=== PATIENT | female | born 1980 | race Caucasian/White ===

== ENCOUNTER 2019-01-12 03:25 | Emergency (ER) | payer SELFPAY ==
[2019-01-12] MEDS ORDERED: MAG HYDROX/AL HYDROX/SIMETH 30 ML UNIT-DOSE CUP PO ONE (03:47)
[2019-01-12] MEDS ORDERED: SODIUM CHLORIDE 1,000 ML IV STA (03:47)
[2019-01-12] MEDS ORDERED: FAMOTIDINE 20 MG/50 ML IVPB 20 MG/50 ML MG IVPB ONE (03:47)
[2019-01-12] MEDS ORDERED: ACETAMINOPHEN 1000 MG/100 ML VIAL (NON FORMULARY) IVPB ONE (03:47)
--- NOTE | 2019-01-12 03:55 | PDOC ---
History of Present Illness - General Stated Complaint: ABD PAIN Time Seen by Provider: 01/12/19 03:46 History Source: Patient Exam Limitations: No Limitations - History of Present Illness Initial Comments: Pt is a 38 yo F, with PMH of nephrolithiasis, who is presenting with complaints of diffuse upper abdominal pain that awoke her from sleep about 1.5 hours ago. Pt describes the pain as sharp, does not radiate, and has been constant since she awoke. Pt ate BBQ chicken just before she went to sleep. Pt recently arrived from the [facility], and has not been able to establish PCP yet. Pt denies any fevers/chills, headache, vision changes, syncope, chest pain , palpitations, SOB, nausea/vomiting, urinary symptoms, diarrhea/constipation, or leg swelling. Allergies: NKDA PCP: None Social: Pt denies any cigarette, alcohol, or drug use. Pt arrived from [facility] 1 month ago. Surgical: abdominoplasty (2017), x1. Family: no relevant history. 01/12/19 04:10 Past History - Travel Traveled outside of the country in the last 30 days: No Close contact w/someone who was outside of country & ill: No - Past Medical History Allergies/Adverse Reactions: Allergies Allergy/AdvReac Type Severity Reaction Status Date / Time No Known Allergies Allergy Verified 01/12/19 04:13 Home Medications: Ambulatory Orders Miconazole Nitrate [Miconazole 7] 45 gm VG DAILY 01/12/19 Review of Systems - Review of Systems Able to Perform ROS?: Yes Is the patient limited Gabonese proficient: No Constitutional: Yes: Weight Stable. No: Chills, Diaphoresis, Fever, Loss of Appetite, Malaise, Night Sweats HEENTM: No: Blurred Vision, Double Vision, Nose Congestion, Throat Pain, Throat Swelling, Difficulty Swallowing Respiratory: No: Cough, Orthopnea, Shortness of Breath Cardiac (ROS): No: Chest Pain, Edema, Irregular Heart Rate, Lightheadedness, Palpitations, Syncope, Chest Tightness ABD/GI: Yes: See HPI, Indigestion, Abdominal cramping. No: Abdominal Distended , Constipated, Diarrhea, Nausea, Poor Appetite, Poor Fluid Intake, Vomiting : No: Burning, Dysuria, Frequency, Pain, Urgency Musculoskeletal: No: Back Pain, Joint Pain, Muscle Pain, Muscle Weakness Integumentary: No: Rash Neurological: No: Headache, Numbness, Weakness, Dizziness Psychiatric: No: Sleep Pattern Change, Change in Appetite Endocrine: No: Increased Urine, Change in Weight Hematologic/Lymphatic: No: Anemia, Blood Clots, Easy Bleeding, Easy Bruising All Other Systems: Reviewed and Negative *Physical Exam - Physical Exam Comments: Vitals stable, pt afebrile. Pt appears very uncomfortable, tearful on the bed, overweight body habitus. Pt alert and oriented x3. endocrinology teacher generally intact, muscular strength and sensation intact. No midline spinal tenderness, step-offs, or crepitus. Head normocephalic, atraumatic. Eyes PERRLA, EOMI. Oropharynx without erythema or exudates, no LAD b/l. No nasal congestion, hearing intact. Clear heart sounds, S1/S2, no JVD, b/l pedal edema, or heart murmur. Clear lung sounds, no respiratory distress, wheezes, crackles, or accessory muscle use. LUQ and epigastric TTP, no rebound, no guarding. Abdomen soft, non-distended, and with normoactive bowel sounds. Skin without jaundice or rash. 01/12/19 03:59 ED Treatment Course - LABORATORY CBC & Chemistry Diagram: 01/12/19 04:00 01/12/19 04:00 - RADIOLOGY Radiology Studies Ordered: Category Date Time Status ABDOMEN US -LIMITED [US] Stat Ultrasound 01/12/19 03:47 Ordered Medical Decision Making - Medical Decision Making Pt was seen at bedside, also will be seen by attending Dr. Hand. Pt presenting with complaints of diffuse upper abdominal pain that awoke her from sleep about 1.5 hours ago. Pt describes the pain as sharp, does not radiate, and has been constant since she awoke. Pt ate BBQ chicken just before she went to sleep. Pt recently arrived from the [place], and has not been able to establish PCP yet. Pt denies any fevers/chills, headache, vision changes, syncope, chest pain, palpitations, SOB, nausea/vomiting, urinary symptoms, diarrhea/constipation, or leg swelling. Considering acute gastritis/ulcer vs cholecysitis/choledocholithiasis vs ACS vs pancreatitis. Ordered work-up including CBC, CMP, lipase, serum , UA, coags. Will perform bedside and official US to look for stones. Provided 1 L IV NS, 1 g IV ofirmev, 30 mg PO maalox, and 20 mg IV pepcid for improvement of indigestion/discomfort. Will continue to reassess pt and monitor for symptomatic improvement. 01/12/19 04:00 ECG: NSR, intervals WNL (HR 85, NJ 132, QRS 70, QTc 433). No TWIs or significant ST segment changes. No prior ECG for comparison. Bedside US showed distended GB with TTP over RUQ, no GB sludge or stones noted. Prominent b/l kidneys with no apparent hydro or cysts. CBC WNL CMP: AST 65, ALT 62 Trop <.02 test negative UA showed mild LE, appears contaminated. Pt has no urinary symptoms, urine culture sent. Pending official US at 7:00am. Pt states pain improved after interventions, resting comfortably. 01/12/19 05:00 Pt resting comfortably. Pending US. Pt signed out to day team. 01/12/19 06:45 *DC/Admit/Observation/Transfer Diagnosis at time of Disposition: RUQ abdominal pain - Discharge Dispostion Condition at time of disposition: Stable - Referrals Referrals: [facility] at [place] [Provider Group] - Patient Instructions - Post Discharge Activity
[2019-01-12 04:13] LABS: BASO % 0.3 % (0-2.0); EOS % 5.2 % (0-4.5); HEMATOCRIT 40.9 % (32.4-45.2); HEMOGLOBIN 13.5 GM/dL (10.7-15.3); LYMPH % 42.4 % (8-40); MCH 27.8 pg (25.7-33.7); MCHC 32.9 g/dl (32.0-36.0); MEAN CELL VOLUME 84.5 fl (80-96); MEAN PLT VOLUME 7.7 fl (7.5-11.1); MONO % 12.6 % (3.8-10.2); NEUT % 39.5 % (42.8-82.8); PLATELET COUNT 372 K/MM3 (134-434); RBC 4.84 M/mm3 (3.60-5.2); RDW 15.9 % (11.6-15.6); WHITE BLOOD COUNT 5.9 K/mm3 (4.0-10.0)
[2019-01-12 04:20] VITALS: BP 110/77; PULSE 87; TEMP 97.7
[2019-01-12 04:25] LABS: INR 1.11 (0.83-1.09); PROTHROMBIN TIME (PATIENT) 13.1 SEC (9.7-13.0)
[2019-01-12 04:37] LABS: ALBUMIN 3.9 g/dl (3.4-5.0); ALK PHOS 139 U/L (45-117); ANION GAP 7 MMOL/L (8-16); BLOOD UREA NITROGEN 15.1 mg/dL (7-18); CALCIUM 8.7 mg/dL (8.5-10.1); CHLORIDE 106 mmol/L (98-107); CO2 28 mmol/L (21-32); CREATININE 0.8 mg/dL (0.55-1.3); GLUCOSE,RANDOM 92 mg/dL (74-106); LIPASE 160 U/L (73-393); POTASSIUM 3.6 mmol/L (3.5-5.1); SGOT/AST 65 U/L (15-37); SGPT/ALT 62 U/L (13-61); SODIUM 140 mmol/L (136-145); TOT PROT 8.1 g/dl (6.4-8.2)
[2019-01-12 04:55] LABS: EPI CELLS 10.8 /HPF (0-5/HPF); HYALINE CASTS 3 /lpf (0-8); PH,URINE 7.5 (5.0-8.0); URINE APPEARANCE CLOUDY; URINE BACTERIA 65.5 /hpf (NEGATIVE); URINE BILIRUBIN NEGATIVE (NEGATIVE); URINE COLOR YELLOW; URINE GLUCOSE (UA) NEGATIVE (NEGATIVE); URINE KETONE NEGATIVE (NEGATIVE); URINE LEUK ESTERASE 1+ (NEGATIVE); URINE NITRITE NEGATIVE (NEGATIVE); URINE PROTEIN NEGATIVE (NEGATIVE); URINE RBC 2 /hpf (0-4); URINE UROBILINOGEN 0.2 mg/dL (0.2-1.0); URINE WBC 12 /hpf (0-5)
--- NOTE | 2019-01-12 05:35 | PDOC ---
Attending Attestation - Resident Resident Name: Michelle Frank - ED Attending Attestation I have performed the following: I have examined & evaluated the patient, The case was reviewed & discussed with the resident, I agree w/resident's findings & plan, Exceptions are as noted - HPI HPI: 01/12/19 05:33 38 F with no PMH presents to ED with upper abdominal pain. Pt states that she ate chicken prior to going to bed and woke up at around 3 am with sharp abdominal pain. Denies N/V. Denies lower abdominal pain or flank pain. Denies CP /SOB. Denies vaginal discharge/bleeding. Denies dysuria. Denies F/C. - Physicial Exam PE: 01/12/19 05:34 GENERAL: Awake, alert, and fully oriented, in no acute distress. HEAD: No signs of trauma EYES: PERRLA, EOMI, sclera anicteric, conjunctiva clear ENT: Auricles normal inspection, hearing grossly normal, nares patent, oropharynx clear without exudates. Moist mucosa NECK: Nontender, no stepoffs, Normal ROM, supple, no lymphadenopathy, JVD, or masses LUNGS: Breath sounds equal, clear to auscultation bilaterally. No wheezes, and no crackles HEART: Regular rate and rhythm, normal S1 and S2, no murmurs, rubs or gallops ABDOMEN: + RUQ TTP, normoactive bowel sounds. No guarding, no rebound. No masses EXTREMITIES: Normal range of motion, no edema. No clubbing or cyanosis. No cords, erythema, or tenderness NEUROLOGICAL: Cranial nerves II through XII intact. 5/5 strength and sensation in all extremities, Normal speech, normal gait, normal cerebellar function SKIN: Warm, Dry, normal turgor, no rashes or lesions noted. - Medical Decision Making 01/12/19 05:34 38 F with RUQ tenderness. Bedside US reveals distended GB but no stones. Suspect likely gastritis vs PUD. - Labs, lipase, LFTs - GI cocktail - RUQ sono 01/12/19 06:41 Labs with very mild transaminitis, otherwise unremarkable Pt reassessed - pain improved but marbleizing machine tender in RUQ Pt signed out to oncoming team, pending US and re-evaluation
--- NOTE | 2019-01-12 07:12 | PDOC ---
*Physical Exam - Vital Signs Last Vital Signs Temp Pulse Resp BP Pulse Ox 97.7 F 87 18 110/77 100 01/12/19 04:10 01/12/19 04:10 01/12/19 04:10 01/12/19 04:10 01/12/19 04:10 ED Treatment Course - LABORATORY CBC & Chemistry Diagram: 01/12/19 04:00 01/12/19 04:00 - ADDITIONAL ORDERS Additional order review: Laboratory Results 01/12/19 01/12/19 01/12/19 04:35 04:00 04:00 PT with INR INR Sodium 140 Potassium 3.6 Chloride 106 Carbon Dioxide 28 Anion Gap 7 L BUN 15.1 Creatinine 0.8 Est GFR (CKD-EPI)AfAm 108.39 Est GFR (CKD-EPI)NonAf 93.52 Random Glucose 92 Calcium 8.7 Total Bilirubin 1.0 AST 65 H ALT 62 H Alkaline Phosphatase 139 H Creatine Kinase 118 Troponin I < 0.02 Total Protein 8.1 Albumin 3.9 Lipase 160 Serum , Qual Urine Color Yellow Urine Appearance Cloudy Urine pH 7.5 Ur Specific Hecker 1.018 Urine Protein Negative Urine Glucose (UA) Negative Urine Ketones Negative Urine Blood Negative Urine Nitrite Negative Urine Bilirubin Negative Urine Urobilinogen 0.2 Ur Leukocyte Esterase 1+ H Urine WBC (Auto) 12 Urine RBC (Auto) 2 Urine Casts (Auto) 3 U Epithel Cells (Auto) 10.8 U Sm Round Cell (Auto) None Urine Crystals (Auto) S phosphateamorphou Urine Bacteria (Auto) 65.5 Blood Type O POSITIVE Antibody Screen Negative 01/12/19 01/12/19 04:00 04:00 PT with INR 13.10 H INR 1.11 H Sodium Potassium Chloride Carbon Dioxide Anion Gap BUN Creatinine Est GFR (CKD-EPI)AfAm Est GFR (CKD-EPI)NonAf Random Glucose Calcium Total Bilirubin AST ALT Alkaline Phosphatase Creatine Kinase Troponin I Total Protein Albumin Lipase Serum , Qual Negative Urine Color Urine Appearance Urine pH Ur Specific Hecker Urine Protein Urine Glucose (UA) Urine Ketones Urine Blood Urine Nitrite Urine Bilirubin Urine Urobilinogen Ur Leukocyte Esterase Urine WBC (Auto) Urine RBC (Auto) Urine Casts (Auto) U Epithel Cells (Auto) U Sm Round Cell (Auto) Urine Crystals (Auto) Urine Bacteria (Auto) Blood Type Antibody Screen 01/12/19 04:00 RBC 4.84 MCV 84.5 MCHC 32.9 RDW 15.9 H MPV 7.7 Neutrophils % 39.5 L Lymphocytes % 42.4 H Monocytes % 12.6 H Eosinophils % 5.2 H Basophils % 0.3 - Medications Given in the ED: ED Medications Discontinued Medications Generic Name Dose Route Start Last Admin Trade Name Manjinder PRN Reason Stop Dose Admin Acetaminophen 1,000 mg 01/12/19 03:47 01/12/19 04:13 Ofirmev Injection - IVPB 01/12/19 03:48 1,000 mg ONCE ONE Administration Al Hydroxide/Mg Hydroxide 30 ml 01/12/19 03:47 01/12/19 04:12 Mylanta Oral Suspension - PO 01/12/19 03:48 30 ml ONCE ONE Administration Famotidine/Sodium Chloride 20 mg in 50 mls @ 100 mls/hr 01/12/19 03:47 04:21 Pepcid 20 Mg Premixed Ivpb - IVPB 01/12/19 04:16 100 mls/hr ONCE ONE Administration Sodium Chloride 1,000 mls @ 1,000 mls/hr 01/12/19 03:47 01/12/19 04:12 Normal Saline - IV 01/12/19 04:46 1,000 mls/hr ASDIR STA Administration Medical Decision Making - Medical Decision Making 38yo F with PMH of nephrolithiasis complaining of diffuse upper abdominal pain that woke her from sleep about 1.5 hours prior to arrival. Patient received GI cocktail Labs unremarkable, though with some mild transaminitis Pending US Possible SW consult 01/12/19 07:13 RUQ US: "The liver measures 16.8 cm in sagittal length with a slightly dense and coarse echotexture. Gallbladder is adequately distended without intraluminal stones or thickening of its wall. No intra or extrahepatic bile duct dilatation is seen. The right kidney measures 10.5 cm sagittal length and appears unremarkable. Visualized portion of the pancreas appears unremarkable Visualized portion of the proximal abdominal aorta and inferior vena cava appear unremarkable. Normal flow in the main portal vein. IMPRESSION: Fatty liver versus hepatocellular disease. Please correlate with liver enzymes. No gallstones are identified." Patient with improved abdominal exam Plan to have her follow-up with [facility] Patient discharged *DC/Admit/Observation/Transfer Diagnosis at time of Disposition: RUQ abdominal pain - Discharge Dispostion Disposition: HOME Condition at time of disposition: Stable - Referrals Referrals: [facility] at [place] [Provider Group] Migue Rosa MD [Staff Physician] - - Patient Instructions Printed Discharge Instructions: DI for Abdominal Pain-Adult Additional Instructions: You came into the ED for abdominal pain. Ultrasound imaging was normal. Labs showed some elevated liver enzymes which should be follow-up on. Followed-up with a primary care provider this week to discuss this ED visit and to further evaluate your symptoms. Your workup is not complete until you do so. You have been referred to the [facility] in case you do not have a primary care doctor. Call and make an appointment at the number provided. Keep diet light - nothing fatty, fried, or spicy. Immediate medical attention is required if you have: you develop worsening pain , high fevers, persistent nausea, vomiting, or any new or concerning symptoms. If you think you are having an emergency, call for emergency medical services or present to the emergency department right away. Entraste en el servicio de urgencias por dolor abdominal. La ecografa fue normal. Los laboratorios mostraron algunas enzimas hepticas elevadas que deberan ser seguidas. Duncan un seguimiento con un proveedor de atencin primaria esta semana para analizar esta visita al ED y para evaluar ms a fondo bob sntomas. Trammell preparacin no est completa hasta que lo duncan. Wong sido referido a la [facility] en debbie de que no tenga un mdico de atencin primaria. Llame y duncan juan pablo red en el nmero proporcionado. Mantenga la dieta ligera: nada graso, frito o picante. Se requiere atencin mdica inmediata si: tiene un dolor que empeora, fiebre joanne, nuseas persistentes, vmitos o cualquier sntoma nuevo o relacionado con ellos. Si xiang que tiene juan pablo emergencia, llame para solicitar servicios mdicos de emergencia o presente al departamento de emergencias de inmediato. Print Language: PERSIAN - Post Discharge Activity Forms/Work/School Notes: Back to Work
--- NOTE | 2019-01-12 11:10 | EKG ---
Test Reason : Blood Pressure : / mmHG Vent. Rate : 085 BPM Atrial Rate : 085 BPM P-R Int : 132 ms QRS Dur : 070 ms QT Int : 364 ms P-R-T Axes : 002 065 033 degrees QTc Int : 433 ms NORMAL SINUS RHYTHM NORMAL ECG NO PREVIOUS ECGS AVAILABLE Confirmed by KENYA MA MD ([id number]) on 01/12/2019 11:10:14 AM Referred By: Confirmed By:KENYA MA MD
== END 2019-01-12 11:25 | disposition home or self-care (01) ==
LOC: JER 03:25
PROC: 3E033GC Introduction of Other Therapeutic Substance into Peripheral Vein, Percutaneous Approach (ICD-10-PCS; principal; 2019-01-12)
PROC: 3E0337Z Introduction of Electrolytic and Water Balance Substance into Peripheral Vein, Percutaneous Approach (ICD-10-PCS; 2019-01-12)
PROC: 3E033NZ Introduction of Analgesics, Hypnotics, Sedatives into Peripheral Vein, Percutaneous Approach (ICD-10-PCS; 2019-01-12)
PROC: BF42ZZZ Ultrasonography of Gallbladder (ICD-10-PCS; 2019-01-12)
DX: R10.11 Right upper quadrant pain (principal); K76.0 Fatty (change of) liver, not elsewhere classified; R94.5 Abnormal results of liver function studies
CPT/HCPCS: 36415; 76705-TC; 80053; 81003; 82550; 83690; 84484; 84703; 85025; 85610; 86850; 86900; 86901; 87077; 87086; 93005; 93010; 96361; 96365; 96375; 99283-25; J0131; J7030

== ENCOUNTER 2019-05-25 08:39 | Emergency (ER) | payer OTHER ==
[2019-05-25 08:45] VITALS: BP 108/70; PULSE 86; TEMP 98.4; BMI 26.4
--- NOTE | 2019-05-25 09:30 | PDOC ---
History of Present Illness - General Chief Complaint: Abscess Boil Stated Complaint: ABSCESS BOIL Time Seen by Provider: 05/25/19 09:05 History Source: Patient Exam Limitations: Clinical Condition - History of Present Illness Initial Comments: 05/25/19 09:34 Patient with no significant past medical history presented with complaint of 1 month history of ingrown hair to left vulvar area which has turned into abscess. Patient reports shaving a month ago to travel outside the country and started having ingrown hair which she plucked it out but areas kept going and has been worsening in the past week. Denies fever, chills. Patient on menstrual period right now Timing/Duration: reports: week (1 week) Severity: Yes: mild Past History - Past Medical History Allergies/Adverse Reactions: Allergies Allergy/AdvReac Type Severity Reaction Status Date / Time No Known Allergies Allergy Verified 01/12/19 04:13 Home Medications: Ambulatory Orders Miconazole Nitrate [Miconazole 7] 45 gm VG DAILY 01/12/19 Mupirocin Ointment [Bactroban 2% Ointment -] 1 applic TP BID #1 tube 05/25/19 Sulfamethoxazole/Trimethoprim [Bactrim Ds -] 1 tab PO BID #14 tablet 05/25/19 COPD: No - Immunization History Immunization Up to Date: No - Psycho Social/Smoking Cessation Hx Smoking History: Never smoked Have you smoked in the past 12 months: No Information on smoking cessation initiated: No Hx Alcohol Use: No Drug/Substance Use Hx: No Review of Systems - Review of Systems Able to Perform ROS?: Yes Is the patient limited Lao proficient: No Constitutional: No: Chills, Fever, Malaise, Weakness HEENTM: No: Symptoms Reported Respiratory: No: Symptoms reported Cardiac (ROS): No: Symptoms Reported ABD/GI: No: Symptoms Reported, Nausea, Vomiting : Yes: Symptoms Reported, See HPI, Other (left vulva abscess). No: Discharge , Frequency, Hematuria, Urgency Musculoskeletal: Yes: Symptoms Reported, See HPI, Muscle Pain (left vulva area) Integumentary: Yes: Symptoms Reported, See HPI, Lumps (left vulva abscess) Neurological: No: Symptoms reported All Other Systems: Reviewed and Negative *Physical Exam - Vital Signs Last Vital Signs Temp Pulse Resp BP Pulse Ox 98.4 F 86 18 108/70 98 05/25/19 08:43 05/25/19 08:43 05/25/19 08:43 05/25/19 08:43 05/25/19 08:43 - Physical Exam General Appearance: Yes: Nourished, Appropriately Dressed, Mild Distress HEENT: positive: Normal ENT Inspection Respiratory/Chest: negative: Respiratory Distress, Accessory Muscle Use Gastrointestinal/Abdominal: negative: Tender Musculoskeletal: positive: Normal Inspection Extremity: positive: Normal Inspection Integumentary: positive: Normal Color, Swelling (2cm localized abscess to left labial majora. no open wounds. no drainage from site. mild surrounding skin erythema) Neurologic: positive: Fully Oriented, Alert, Normal Mood/Affect, Normal Response Medical Decision Making - Medical Decision Making 05/25/19 09:35 Patient with no significant past medical history presented with complaint of 1 month history of ingrown hair to left vulvar area which has turned into abscess. Patient reports shaving a month ago to travel outside the country and started having ingrown hair which she plucked it out but areas kept going and has been worsening in the past week. Denies fever, chills. Patient on menstrual period right now Exam significant for 2 cm area of abscess to her left vulvar area over labia majora. No open wound or drainage from site. Patient does not feel comfortable with I&D given she is on her menstrual period right now. Patient will be discharged on Bactrim antibiotics and topical Bactroban for abscess with advised to do hot compress and follow-up with [facility]ST[facility] DEALER 2 to 3 days for reassessment Discharge - Discharge Information Problems reviewed: Yes Clinical Impression/Diagnosis: Vulvar abscess, Folliculitis Condition: Stable Disposition: HOME - Admission No - Additional Discharge Information Prescriptions: Mupirocin Ointment [Bactroban 2% Ointment -] 1 applic TP BID #1 tube Sulfamethoxazole/Trimethoprim [Bactrim Ds -] 1 tab PO BID #14 tablet - Follow up/Referral Referrals: Jenny Wagoner MD [Staff Physician] - - Patient Discharge Instructions Patient Printed Discharge Instructions: DI for Vulvar Abscess Additional Instructions: Take prescribed medication as prescribed for abscess. Apply heat to vulvar area 2-3 times a day for 5 minutes to help with abscess. Follow-up referred to THREAT MONITORING ANALYST in 2 to 3 days for reassessment follow-up [place] la medicacin prescrita segn lo prescrito para el absceso. Aplique calor al ángel vulvar 2-3 veces al da ja 5 minutos para ayudar con el absceso. El seguimiento se refiri al obstetra / gineclogo en 2 a 3 alarcon para el seguimiento de reevaluacin Print Language: LAO - Post Discharge Activity Work/Back to School Note: Back to Work
[2019-05-25] MEDS ORDERED: KETOROLAC TROMETHAMINE 30 MG/1 ML VIAL IM ONE (09:32)
[2019-05-25] MEDS ORDERED: KETOROLAC TROMETHAMINE 30 MG/1 ML VIAL ONE (09:41)
== END 2019-05-25 09:49 | disposition home or self-care (01) ==
LOC: JERFT 08:39
PROC: 3E0233Z Introduction of Anti-inflammatory into Muscle, Percutaneous Approach (ICD-10-PCS; principal; 2019-05-25)
DX: N76.4 Abscess of vulva (principal); L73.8 Other specified follicular disorders
CPT/HCPCS: 99282-25